=== PATIENT | male | born 1985 | race Caucasian/White ===

== ENCOUNTER 2016-09-30 21:55 | Emergency (ER) | payer OTHER ==
--- NOTE | 2016-09-30 22:53 | PROVIDER DOCUMENTATION ---
HPI-Head Injury - General Source: patient - History of Present Illness-Head Injury Head Injury Location: reports: other (crown) Other injuries associated with incident:: reports: head Quality of Pain: reports: aching Severity: reports: mild Onset/Duration: reports: 1-3 hours ago Timing: reports: still present Method of Injury: reports: direct blow Any recent trauma/injury?: reports: minor, to head Loss of Consciousness: no loss of consciousness Modifying Factors: improves with: nothing Injury Associated Symptoms: reports: headaches Locality of Occurance: Home Similar Symptoms Previously?: No Recently seen or treated by another doctor?: No <Nupur Ro - Last Filed: 09/30/16 22:54> <Dawna Ritchie - Last Filed: 10/01/16 01:14> - General Chief Complaint: Work Related Injury Stated Complaint: WORK RELATED INJURY Time Seen by Provider: 09/30/16 22:46 Allergies/Adverse Reactions: Patient Allergies Allergy/AdvReac Type Severity Reaction Status Date / Time No Known Allergies Allergy Verified 08/01/12 18:41 Home Medications: Home Medication List Medication Instructions Recorded Confirmed Last Taken Type Cephalexin [Keflex] 500 mg PO 4XDAY #20 capsule 09/30/16 Unknown Rx Hydrocodone/APAP 5 mg/325 mg 1 each PO Q6H PRN PRN #10 tablet 09/30/16 Unknown Rx [Marshall-5] - History of Present Illness-Head Injury Nature of Presenting Problem: 31 year old M presents to the ED with a cc a scalp laceration. PT states that he hit his head on a piece of metal. PT denies LOC. PT states that he did fall to the ground after hitting his head. (Nupur Ro) Review of Systems - Adult - REVIEW OF SYSTEMS - ADULT Constitutional: denies: chills, fever Eyes: reports: no symptoms reported Ears, Nose, Mouth & Throat: reports: no symptoms reported Cardiovascular: reports: no symptoms reported Respiratory: reports: no symptoms reported Gastrointestinal: denies: nausea, vomiting Genitourinary: reports: no symptoms reported Musculoskeletal: denies: back pain, muscle aches, muscle weakness, neck pain Integumentary: reports: other (laceration). denies: skin sores/ulcer, skin thickening Neurological: reports: headache/migraines. denies: dizziness/vertigo Psychiatric: reports: no symptoms reported Endocrine: reports: no symptoms reported Hematologic/Lymphatic: reports: no symptoms reported Allergic/Immunologic: reports: no symptoms reported All Other Systems: Reviewed and Negative <JayjayNupur - Last Filed: 09/30/16 22:54> Past History - Adult - PAST MEDICAL HISTORY-ADULT Review of Records: reports: Nursing Assessment Review, Medications Reviewed Major Childhood Illnesses: reports: denies history - PRIOR SURGERIES/PROCEDURES Surgical/Procedure History: reports: orthopedic (extremity) - IMMUNIZATION STATUS Childhood Immunizations: See Nurse Assessment Flu Vaccine: See Nurse Assessment - SOCIAL HISTORY Smoking: non-smoker Substance Use: none/never Alcohol Use Frequency: never <Nupur Ro - Last Filed: 09/30/16 22:54> Physical Exam- Neurological - Physical Exam-Neuro Initial Vital Signs Reviewed: Yes General Appearance: appears well, alert, no apparent distress Respiratory: chest non-tender, lungs clear, normal breath sounds Cardiovascular: normal peripheral pulses, regular rate, rhythm, no edema 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 Exam: normal hearing, normal speech, PERRL Motor/Sensory: no motor deficit, no sensory deficit, no pronator drift Neurologic: bundle sorter II-XII nml as tested, no motor/sensory deficits Integumentary: laceration(s) (1 cm laceration to crown of head) Psych/Mental Status: normal mood/affect, normal thought content, normal thought process, oriented x 3 - Glascow Coma Scale Best Eye Response: (4) open spontaneously Best Verbal Response: (5) oriented Best Motor Response: (6) obeys commands Total Glascow Score: 15 <Nupur Ro - Last Filed: 09/30/16 22:54> Progress <Nupur Ro - Last Filed: 09/30/16 22:54> - CT/MRI 1 CT Study: Head CT Results: scalp laceration, otherwise no acute process. <Dawna Ritchie - Last Filed: 10/01/16 01:14> - PLAN OF CARE/RESULTS Progress/Plan/Lab Results: Orders Category Date Time Status HEAD W/O CONTRAST [CT] Stat Exams 09/30/16 22:54 Taken Diphtheria/Tetanus Adult Med 09/30/16 22:54 Discontinued 0.5 ml IM .ONCE ONE Lidocaine 1% Pf [Xylocaine-Mpf 1%] 5 ml Med 09/30/16 23:27 Discontinued .ROUTE As Directed Lidocaine 1% [Xylocaine 1%] Med 09/30/16 22:54 Discontinued 20 ml INJ NOW ONE Vital Signs Temp Pulse Resp BP Pulse Ox 09/30/16 22:23 97.8 F 77 20 141/75 98 No Known Allergies Allergy (Verified 08/01/12 18:41) Cephalexin [Keflex] 500 mg PO 4XDAY #20 capsule 09/30/16 Hydrocodone/APAP 5 mg/325 mg [Marshall-5] 1 each PO Q6H PRN PRN #10 tablet (Dawna Ritchie) Procedures - LACERATION/WOUND REPAIR/FB Head Wound Location: Other: scalp Wound Length: 1cm Wound's Depth, Shape: superficial Wound Explored/Foreign Body: clean, no foreign body found Prepped with: Hibiclens Anesthetic: 1%, Lidocaine/Xylocaine Volume of Anesthetic (ml's): 3 Wound Repaired with: Mazama-Small Number of Sutures: 2 Layer Closure?: No <Dawna Ritchie - Last Filed: 10/01/16 01:14> Departure <Nupur Ro - Last Filed: 09/30/16 22:54> - Departure Time of Disposition Order: 01:13 Certified Medical Emergency: Emergent <Dawna Ritchie - Last Filed: 10/01/16 01:14> - Departure DIAGNOSIS: Laceration of scalp, Head injury Disposition: HOME 01 Condition: Good Additional Instructions: Return to ER in 7 days for staple removal or sooner if signs of infection occur or if new/worsening symptoms occur. ED Follow Up Instructions: You have been treated by a care provider in the Emergency Department. These instructions are being provided to you so you can have an understanding of how to care for yourself upon discharge. Upon discharge from the Emergency Department, you are responsible for making arrangements for follow-up care by a physician of your choice. Take all prescribed medications as directed. Return to the Emergency Department immediately for any new or worsening symptoms. You may call the Physician Referral phone number at [phone] to obtain a list of Physicians who are taking new patients. Prescriptions: Cephalexin [Keflex] 500 mg PO 4XDAY #20 capsule Hydrocodone/APAP 5 mg/325 mg [Marshall-5] 1 each PO Q6H PRN PRN #10 tablet PRN Reason: Pain Referrals: None,PCP [Primary Care Provider] - Instructions: Acetaminophen; Hydrocodone tablets or capsules, Head Injury, Adult, Hydrocodone extended-release capsules or tablets, Laceration Care, Adult , Cephalexin tablets or capsules, Laceration Care, Adult, Phul-ut-Inap Attestation - Scribe Verification/Attestation Scribe:: Nupur Ro Acting as Scribe for:: Dawna Ritchie Scribe documention review:: This chart was documented by a scribe and accurately reflects the service the provider performed and the decisions made by the provider. <Nupur Ro - Last Filed: 09/30/16 22:54> - Physician/ MEREDITH Attestation Patient care was provided by Advanced Practice Provider:: Yes Advanced Practice Provider:: Dawna Ritchie Advanced Practice Provider documentation review:: The Mid-level provider documentation, treatment plan and medical decision making was reviewed by the physician who agrees with all treatment and medical decision making by the P. <Dawna Ritchie - Last Filed: 10/01/16 01:14> Physician Attestation - Physician Attestation I, the provider, attest to the following statement:: Dawna Ritchie Physician documentation Attestation:: This documentation recorded by the scribe accurately reflects the service I personally performed and the decisions made by me. <Nupur Ro - Last Filed: 09/30/16 22:54>
[2016-09-30] MEDS ORDERED: DIPHTHERIA/TETANUS ADULT IM ONE (22:54)
[2016-09-30] MEDS ORDERED: XYLOCAINE 1% INJ ONE (22:54)
[2016-09-30] MEDS ORDERED: XYLOCAINE-MPF 1% 5 ML ONE (23:27)
[2016-10-01 00:41] VITALS: BP 128/87
--- NOTE | 2016-10-01 07:34 | Diag Imaging Result Document ---
PROCEDURE NAME: HEAD W/O CONTRAST - 09/30/2016 CT OF THE HEAD WITHOUT CONTRAST: FINDINGS: There is no evidence of mass effect, bleed, or abnormal extra-axial fluid collection. The visualized paranasal sinuses are clear. The calvarium is intact. There is a laceration apparently in the vertex of the scalp. IMPRESSION: No evidence of acute intracranial disease.
== END 2016-10-01 00:40 | disposition home or self-care (01) ==
LOC: P.ED 21:55
DX: S01.01XA Laceration without foreign body of scalp, initial encounter (principal); R51 Headache; Z23 Encounter for immunization; W18.09XA Striking against other object with subsequent fall, initial encounter
CPT/HCPCS: 70450; 90471; 90714